=== PATIENT | male | born 1985 | race African-American/Black ===

== ENCOUNTER 2017-10-05 10:22 | Emergency (ER) ==
[2017-10-05 10:29] VITALS: BP 121/90; TEMP 98.4; BMI 22.3
[2017-10-05] MEDS ORDERED: DUONEB NEB STA (10:33)
[2017-10-05] MEDS ORDERED: SOLU-MEDROL 125 MG IVP STA (10:34)
[2017-10-05] MEDS ORDERED: PREDNISONE PO STA (10:38)
--- NOTE | 2017-10-05 10:50 | ED.PDOC ---
General ED Provider: Dr. NICHOLE RAMIREZ Chief Complaint: Shortness of Air Stated Complaint: shortness of breath/wheezing Time Seen by Physician: 10:26 (mild resp distress pulse ox on arrival 93%) Mode of Arrival: Wheelchair Information Source: Patient Exam Limitations: No limitations Nursing and Triage Documentation Reviewed and Agree: Yes Reviewed sepsis parameters & appropriate labs ordered?: Yes (smoke1 pk/day) System Inflammatory Response Syndrome: Not Applicable Sepsis Protocol: For patient's 13 years and over: Temp is 96.8 and below OR 101 and greater Pulse >90 BPM Resp >20/minute Acutely Altered Mental Status Are patient's symptoms suggestive of a new infection, such as: -Pneumonia -Skin, Soft Tissue -Endocarditis -UTI -Bone, Joint Infection -Implantable Device -Acute Abdominal Infection -Wound Infection -Meningitis -Blood Stream Catheter Infection -Unknown System Inflammatory Response Syndrome: Not Applicable Respiratory Complaint Exam - Shortness of Air Complaint/Exam Onset/Duration: 8r ago started and became worse Symptoms Are: Still present Timing: Constant Initial Severity: Moderate Current Severity: Moderate Character: Reports: Dyspnea at rest, Dyspnea on exertion, Orthopnea Aggravating: Reports: Smoke exposure (1pk/day), Weather Alleviating: Reports: Bronchodilators, Oxygen, Spontaneous resolution Associated Signs and Symptoms: Reports: Cough, Wheezing, Nasal congestion. Denies: Chest pain with cough, Chest pain, Fever, Chills, Diaphoresis, Dizziness , Calf pain, Calf swelling, Edema, Rapid breathing, Labored breathing, Decreased intake History of Healthcare-Acquired Pneumonia: No Pulmonary Embolism Risk Factors: Reports: Smoking Pseudomonas Risk Factors: Reports: Chronic Lung Disease Tuberculosis Risk Factors: Reports: None Home Oxygen Use: No Recent Stress Test: No Recent Echo/LV Function: No Respiratory Distress: None Stridor Present: No Tracheal Deviation: No Subcutaneous Emphysema: No Accessory Muscle Use: No Retractions: Not Present Diminished Breath Sounds: No Prolonged Expiratory Phase: No Unable to Speak Full Sentences: No Fatigue: No Leg Swelling: No Abner's Sign Present: No Grunting Respirations: No Kussmaul Respirations: No (has ran out of meds ) Differential Diagnoses: Asthma, Pneumonia, Bronchitis Review of Systems - Review Of Systems Constitutional: Reports: No symptoms Eyes: Reports: No symptoms Ears, Nose, Mouth, Throat: Reports: No symptoms Respiratory: Reports: Cough, Short of air, Wheezing Cardiac: Reports: No symptoms GI: Reports: No symptoms : Reports: No symptoms Musculoskeletal: Reports: No symptoms Skin: Reports: No symptoms Neurological: Reports: No symptoms Endocrine: Reports: No symptoms Hematologic/Lymphatic: Reports: No symptoms All Other Systems: Reviewed and Negative Past Medical History - Past Medical History Previously Healthy: Yes Endocrine: Reports: None Cardiovascular: Reports: None Respiratory: Reports: Asthma Hematological: Reports: None Gastrointestinal: Reports: None Genitourinary: Reports: None Neuro/Psych: Reports: None Musculoskeletal: Reports: None Cancer: Reports: None - Surgical History General Surgical History: Reports: None - Family History Family History: Reports: None - Social History Smoking Status: Current every day smoker, Heavy tobacco smoker Hx Substance Use: No Alcohol Screening: Occasionally Physical Exam - Physical Exam Appearance: Ill-appearing Ill-appearing: Moderate Pain Distress: Moderate Eyes: JUDE, EOMI, Conjunctiva clear ENT: Ears normal, Nose normal, Oropharynx normal Respiratory: Breath sounds diminished, Wheezes Cardiovascular: RRR, Pulses normal, No rub, No murmur GI/: Soft, Nontender, No masses, Bowel sounds normal, No Organomegaly Musculoskeletal: Normal strength, ROM intact, No edema, No calf tenderness Skin: Warm, Dry, Normal color Neurological: Sensation intact, Motor intact, Reflexes intact, Cranial nerves intact, Alert, Oriented Psychiatric: Affect appropriate, Mood appropriate Critical Care Note - Critical Care Note Total Time (mins): 0 Course - Course Orders, Labs, Meds: Orders Category Date Time Status EKG-(ED ONLY) Stat CARDIO 10/05/17 10:33 Stop Req ED IV/MEDIPORT/POWERPORT .ONCE EMERGENCY 10/05/17 10:33 Inactive ABG Stat LAB 10/05/17 10:34 Stop Req CBC W/ AUTO DIFF Stat LAB 10/05/17 10:33 Stop Req COMPREHENSIVE METABOLIC PANEL Stat LAB 10/05/17 10:33 Stop Req Ipratropium/Albuterol Neb [Duoneb] MEDS 10/05/17 10:33 Discontinued 1 vial NEB ONCE STA Prednisone MEDS 10/05/17 10:38 Discontinued 40 mg PO ONCE STA Medications Discontinued Medications Generic Name Dose Route Start Last Admin Trade Name Freq PRN Reason Stop Dose Admin Albuterol/Ipratropium 1 vial 10/05/17 10:33 10/05/17 10:45 Duoneb NEB 10/05/17 10:34 1 vial ONCE STA Administration Prednisone 40 mg 10/05/17 10:38 Prednisone PO 10/05/17 10:39 ONCE STA Vital Signs: Temp Pulse Resp BP Pulse Ox 10/05/17 10:23 98.4 F 95 H 24 121/90 91 L Departure - Departure Time of Disposition: 10:51 [facility]RAY FULL BLOOD WORK PT REFUSED WORK UP STATED HE HAS TO LEAVE HE IS VISITING THE AREA RISKS FULLY DISCLOSED ) Disposition: AMA Discharge Problem: Asthma attack Qualifiers: Asthma severity: moderate Asthma persistence: unspecified Qualified Code(s): J45.901 - Unspecified asthma with (acute) exacerbation Instructions: Asthma (ED) Condition: Good Pt referred to PMD for follow-up: Yes IPMP verified?: No Additional Instructions: Please call your Family Physician as soon as possible to schedule a follow-up appointment. Allergies/Adverse Reactions: Allergies No Known Allergies Allergy (Unverified 10/05/17 10:28) Home Medications: Ambulatory Orders Albuterol Sulfate 0.083% Neb [Albuterol 0.083% Neb] 1 vial NEB RTQ6H PRN Albuterol Sulfate [Proventil Hfa] 6.7 gm IH Q4HR PRN 10/05/17
== END 2017-10-05 11:18 | disposition left against medical advice (07) ==
LOC: ED 10:22
DX: J45.901 Unspecified asthma with (acute) exacerbation (principal); F17.210 Nicotine dependence, cigarettes, uncomplicated
CPT/HCPCS: 94640; 99284